=== PATIENT | female | born 1985 | race Caucasian/White ===

== ENCOUNTER → 2016-04-21 | Outpatient (CLI) | payer OTHER ==
[~2016-04-21] MED LIST: IBUP800T OR; PERC7.5T8 OR; PRENATAL VITAMIN PO
[2016-04-21 19:22] LABS: ANION GAP 8 MEQ/L (8-16); BLOOD UREA NITROGEN 7 MG/DL (7-18); CALCIUM LEVEL 9.2 MG/DL (8.5-10.1); CARBON DIOXIDE LEVEL 28 MEQ/L (21-32); CHLORIDE LEVEL 104 MEQ/L (98-107); CREATININE FOR GFR 0.84 MG/DL (0.55-1.02); FREE T4 0.95 NG/DL (0.76-1.46); GLOMERULAR FILTRATION RATE > 60.0 (>60); GLUCOSE, FASTING 91 MG/DL (70-105); HCG, SERUM QUANTITATIVE < 1.0 MIU/ML; POTASSIUM SERUM 4.3 MEQ/L (3.5-5.1); SODIUM LEVEL 140 MEQ/L (136-145)
== END ==
LOC: M SMT 14:27
PROVIDERS: ATTEND Nurse Practitioner Family
DX: E03.9 Hypothyroidism, unspecified (principal); N91.2 Amenorrhea, unspecified

== ENCOUNTER → 2016-11-11 | Outpatient (CLI) | payer OTHER ==
[2016-11-11 14:52] LABS: ALBUMIN 3.7 GM/DL (3.2-5.2); ALBUMIN/GLOBULIN RATIO 1.03 (1.00-1.93); ALKALINE PHOSPHATASE 77 U/L (45-117); ALT/SGPT 24 U/L (12-78); ANION GAP 10 MEQ/L (8-16); AST/SGOT 14 U/L (15-37); BILIRUBIN,TOTAL 1.3 MG/DL (0.2-1.0); BLOOD UREA NITROGEN 7 MG/DL (7-18); CALCIUM LEVEL 8.5 MG/DL (8.5-10.1); CARBON DIOXIDE LEVEL 24 MEQ/L (21-32); CHLORIDE LEVEL 108 MEQ/L (98-107); CREATININE FOR GFR 0.81 MG/DL (0.55-1.02); GLOMERULAR FILTRATION RATE > 60.0 (>60); GLUCOSE, FASTING 98 MG/DL (70-105); POTASSIUM SERUM 3.8 MEQ/L (3.5-5.1); SODIUM LEVEL 142 MEQ/L (136-145); TOTAL PROTEIN 7.3 GM/DL (6.4-8.2)
== END ==
LOC: M WUC 10:37
PROVIDERS: ATTEND Nurse Practitioner Family
DX: E03.9 Hypothyroidism, unspecified (principal)

== ENCOUNTER → 2017-05-11 | Outpatient (REF) | payer OTHER | LOC: M LAB REF 18:04 | DX: Z12.4 Encounter for screening for malignant neoplasm of cervix (principal) ==

== ENCOUNTER → 2017-05-12 | Outpatient (CLI) | payer OTHER ==
[2017-05-12 13:37] LABS: CONTROL LINE HCG INT CTR LINE PRESENT; HCG, SERUM QUALITATIVE NEGATIVE (NEGATIVE)
[2017-05-12 13:54] LABS: LUTEINIZING HORMONE 7.2 mIU/mL
[2017-05-12 13:56] LABS: FOLLICLE STIMULATING HORMONE 4.9 mIU/mL
[2017-05-12 14:58] LABS: CHOLESTEROL LEVEL 193 MG/DL (<200); CHOLESTEROL RISK RATIO 4.106 (<5); FREE THYROXINE INDEX 2.7 % (1.3-4.8); GLUCOSE, FASTING 92 MG/DL (70-100); HDL CHOLESTEROL 47 MG/DL (>40); LDH LACTATE DEHYDROGENASE 204 U/L (84-246); LDL CHOLESTEROL 121.6 MG/DL (<100); NON-HDL-C 146 MG/DL; T UPTAKE 31 % (30-39); THYROXINE (T4) 8.6 UG/DL (4.5-12.0); TRIGLYCERIDES LEVEL 122 MG/DL (<150)
== END ==
LOC: M SMT 10:29
DX: N91.1 Secondary amenorrhea (principal); N92.6 Irregular menstruation, unspecified; R63.5 Abnormal weight gain
CPT/HCPCS: 83001

== ENCOUNTER → 2017-07-05 | Outpatient (CLI) | payer OTHER ==
[2017-07-05 13:58] LABS: CONTROL LINE HCG INT CTR LINE PRESENT; HCG, SERUM QUALITATIVE NEGATIVE (NEGATIVE)
== END ==
LOC: M SMT 08:42
DX: N92.6 Irregular menstruation, unspecified (principal)
CPT/HCPCS: 84703

== ENCOUNTER → 2017-08-05 | Outpatient (CLI) | payer OTHER ==
[2017-08-05 14:52] LABS: FREE T4 0.84 NG/DL (0.76-1.46)
[2017-08-05 14:52] LABS: GLUCOSE, FASTING 89 MG/DL (70-100)
[2017-08-10 00:07] LABS: INSULIN FREE 15 uU/mL (.); INSULIN TOTAL2 15 uU/mL (.)
== END ==
LOC: M SMT 08:23
DX: N92.6 Irregular menstruation, unspecified (principal)
CPT/HCPCS: 82947

== ENCOUNTER → 2017-09-21 | Outpatient (CLI) | payer OTHER ==
[2017-09-21 13:31] LABS: BASO # 0.1 10^3/uL (0.0-0.2); BASO % 0.5 % (0.0-1.0); EOS # 0.4 10^3/uL (0.0-0.50); EOS % 4.1 % (0.0-3.0); HEMATOCRIT 42.7 % (36.0-47.0); HEMOGLOBIN 14.7 g/dl (12.0-15.5); IMMATURE GRANULOCYTE % 0.4 % (0-3.0); LYMPH # 2.6 10^3/uL (1.5-6.5); LYMPH % 25.6 % (24.0-44.0); MEAN CORPUSCULAR HEMOGLOBIN 31.9 pg (27.0-33.0); MEAN CORPUSCULAR HGB CONC 34.4 g/dl (32.0-36.5); MEAN CORPUSCULAR VOLUME 92.6 fl (80.0-96.0); MONO # 0.8 10^3/uL (0.0-0.8); MONO % 7.4 % (0.0-5.0); NEUTROPHILS # 6.3 10^3/uL (1.8-7.7); PLATELET COUNT, AUTOMATED 312 10^3/uL (150-450); RED BLOOD COUNT 4.61 10^6/uL (4.00-5.40); WHITE BLOOD COUNT 10.2 10^3/uL (4.0-10.0)
[2017-09-21 13:48] LABS: ALBUMIN 3.6 GM/DL (3.2-5.2); ALBUMIN/GLOBULIN RATIO 0.97 (1.00-1.93); ALKALINE PHOSPHATASE 83 U/L (45-117); ALT/SGPT 25 U/L (12-78); ANION GAP 8 MEQ/L (8-16); AST/SGOT 14 U/L (7-37); BILIRUBIN,TOTAL 1.3 MG/DL (0.2-1.0); BLOOD UREA NITROGEN 12 MG/DL (7-18); CALCIUM LEVEL 8.7 MG/DL (8.5-10.1); CARBON DIOXIDE LEVEL 29 MEQ/L (21-32); CHLORIDE LEVEL 108 MEQ/L (98-107); FREE T3 2.6 PG/ML (2.2-4.0); FREE T4 1.05 NG/DL (0.76-1.46); GLOMERULAR FILTRATION RATE > 60.0 (>60); GLUCOSE, FASTING 75 MG/DL (70-100); POTASSIUM SERUM 4.3 MEQ/L (3.5-5.1); SODIUM LEVEL 145 MEQ/L (136-145); TOTAL PROTEIN 7.3 GM/DL (6.4-8.2)
== END ==
LOC: M WUC 10:45
DX: K21.9 Gastro-esophageal reflux disease without esophagitis (principal); E03.9 Hypothyroidism, unspecified
CPT/HCPCS: 84443

== ENCOUNTER → 2017-12-22 | Outpatient (CLI) | payer OTHER ==
[2017-12-22 20:07] LABS: CONTROL LINE HCG INT CTR LINE PRESENT; HCG, SERUM QUALITATIVE NEGATIVE (NEGATIVE)
== END ==
LOC: M LAB 18:24
DX: E28.2 Polycystic ovarian syndrome (principal)
CPT/HCPCS: 84703

== ENCOUNTER → 2018-01-08 | Outpatient (CLI) | payer OTHER ==
[2018-01-10 10:15] LABS: FOLLICLE STIMULATING HORMONE 6.9 mIU/mL
== END ==
LOC: M LAB 09:01
DX: E28.2 Polycystic ovarian syndrome (principal)
CPT/HCPCS: 83001

== ENCOUNTER → 2018-05-23 | Outpatient (CLI) | payer OTHER ==
[2018-05-23 12:44] LABS: HEMOGLOBIN A1c 4.5 %
[2018-05-23 13:17] LABS: FREE T4 1.38 NG/DL (0.76-1.46); THYROID STIMULATING HORMONE 2.71 uIU/ML (0.358-3.740)
== END ==
LOC: M SMT 10:47
PROVIDERS: ATTEND Obstetrics & Gynecology
DX: E03.9 Hypothyroidism, unspecified (principal); N97.9 Female infertility, unspecified

== ENCOUNTER → 2018-06-08 | Outpatient (CLI) | payer OTHER ==
[2018-06-08 17:31] LABS: ALBUMIN 3.7 GM/DL (3.2-5.2); ALT/SGPT 31 U/L (12-78); BILIRUBIN,TOTAL 1.6 MG/DL (0.2-1.0); BLOOD UREA NITROGEN 6 MG/DL (7-18); CALCIUM LEVEL 8.8 MG/DL (8.5-10.1); CARBON DIOXIDE LEVEL 27 MEQ/L (21-32); CHLORIDE LEVEL 104 MEQ/L (98-107); CHOLESTEROL LEVEL 182 MG/DL (<200); CHOLESTEROL RISK RATIO 4.666 (<5); CREATININE FOR GFR 0.77 MG/DL (0.55-1.30); GLOMERULAR FILTRATION RATE > 60.0 (>60); GLUCOSE, FASTING 80 MG/DL (70-100); HDL CHOLESTEROL 39 MG/DL (>40); LDL CHOLESTEROL 108 MG/DL (<100); NON-HDL-C 143 MG/DL; POTASSIUM SERUM 4.1 MEQ/L (3.5-5.1); SODIUM LEVEL 140 MEQ/L (136-145); TOTAL PROTEIN 7.4 GM/DL (6.4-8.2); TRIGLYCERIDES LEVEL 175 MG/DL (<150)
[2018-06-08 17:34] LABS: BASO # 0.1 10^3/uL (0.0-0.2); BASO % 0.5 % (0.0-1.0); EOS # 0.5 10^3/uL (0.0-0.50); EOS % 5.7 % (0.0-3.0); HEMATOCRIT 44.5 % (36.0-47.0); HEMOGLOBIN 14.8 g/dl (12.0-15.5); LYMPH # 2.5 10^3/uL (1.5-4.5); LYMPH % 26.1 % (24.0-44.0); MEAN CORPUSCULAR HEMOGLOBIN 31.8 pg (27.0-33.0); MEAN CORPUSCULAR HGB CONC 33.3 g/dl (32.0-36.5); MEAN CORPUSCULAR VOLUME 95.7 fl (80.0-96.0); MONO # 0.7 10^3/uL (0.0-0.8); NEUTROPHILS # 5.6 10^3/uL (1.8-7.7); NEUTROPHILS % 60.3 % (36.0-66.0); PLATELET COUNT, AUTOMATED 342 10^3/uL (150-450); RED BLOOD COUNT 4.65 10^6/uL (4.00-5.40); WHITE BLOOD COUNT 9.4 10^3/uL (4.0-10.0)
== END ==
LOC: M WUC 11:54
PROVIDERS: ATTEND Nurse Practitioner Family
DX: K21.9 Gastro-esophageal reflux disease without esophagitis (principal); E03.9 Hypothyroidism, unspecified; Z13.220 Encounter for screening for lipoid disorders

== ENCOUNTER → 2018-06-14 | Outpatient (CLI) | payer OTHER ==
[~2018-06-14] MED LIST changes: +ISOVUE-370 76% 125ML VIAL (Q9967 PER ML) As Ordered ONE
--- NOTE | 2018-06-14 14:10 | REP ---
HYSTEROSALPINGOGRAM: The patient was referred for hysterosalpingogram. Referring clinician catheterized the cervix and injected contrast while I performed fluoroscopy obtained fluoroscopic images. Uterine cavity distends well with no filling defect. No contour abnormality is seen of the uterus. Fallopian tubes are normal in caliber. There is free passage of contrast through both fallopian tubes, with free bilateral intraperitoneal spillage of contrast. IMPRESSION: Bilateral fallopian tube patency. Fluoroscopy time 0.4 minutes. Electronically Signed by Donald Kenyon MD 06/15/2018 10:15 A
== END ==
LOC: M RADPRO 11:37
PROVIDERS: ATTEND Obstetrics & Gynecology
DX: N97.9 Female infertility, unspecified (principal); N92.6 Irregular menstruation, unspecified
CPT/HCPCS: 58340; 74740; Q9967

== ENCOUNTER → 2018-12-26 | Outpatient (CLI) | payer OTHER ==
[~2018-12-26] MED LIST changes: -ISOVUE-370 76% 125ML VIAL (Q9967 PER ML) As Ordered ONE
[2018-12-26 13:12] LABS: BASO # 0.1 10^3/uL (0.0-0.2); BASO % 0.5 % (0.0-1.0); EOS # 0.5 10^3/uL (0.0-0.5); EOS % 4.9 % (0.0-3.0); HEMATOCRIT 41.9 % (36.0-47.0); HEMOGLOBIN 14.6 g/dl (12.0-15.5); LYMPH # 2.1 10^3/uL (1.5-5.0); LYMPH % 19.4 % (24.0-44.0); MEAN CORPUSCULAR HGB CONC 34.8 g/dl (32.0-36.5); MEAN CORPUSCULAR VOLUME 97.7 fl (80.0-96.0); MONO # 0.6 10^3/uL (0.0-0.8); MONO % 5.8 % (0.0-5.0); NEUTROPHILS # 7.6 10^3/uL (1.5-8.5); NEUTROPHILS % 68.8 % (36.0-66.0); PLATELET COUNT, AUTOMATED 300 10^3/uL (150-450); RED BLOOD COUNT 4.29 10^6/uL (4.00-5.40)
[2018-12-26 14:07] LABS: HEPATITIS C VIRUS ABY INDEX 0.1 INDEX (<0.8); HIV 1&2 SCREEN CENTAUR NEGATIVE (NEGATIVE); RUBELLA IgG QUALITATIVE IMMUNE (IMMUNE)
[2018-12-26 15:25] LABS: CHLAMYDIA DNA AMPLIFICATION NEGATIVE (NEGATIVE); GC DNA AMPLIFICATION NEGATIVE (NEGATIVE)
== END ==
LOC: M SMT 09:41
PROVIDERS: ATTEND Advanced Practice Midwife
DX: Z34.81 Encounter for supervision of other normal pregnancy, first trimester (principal)

== ENCOUNTER → 2019-02-06 | Outpatient (CLI) | payer MEDICAID ==
[2019-02-06 10:49] LABS: FREE T4 0.87 NG/DL (0.76-1.46); THYROID STIMULATING HORMONE 6.1 uIU/ML (0.358-3.740)
== END ==
LOC: M SMT 08:29
PROVIDERS: ATTEND Obstetrics & Gynecology
DX: O34.219 Maternal care for unspecified type scar from previous cesarean delivery (principal); E03.9 Hypothyroidism, unspecified; O99.280 Endocrine, nutritional and metabolic diseases complicating pregnancy, unspecified trimester

== ENCOUNTER → 2019-05-01 | Outpatient (CLI) | payer MEDICAID, OTHER | LOC: M PLALAB 09:48 | PROVIDERS: ATTEND Advanced Practice Midwife | DX: O34.219 Maternal care for unspecified type scar from previous cesarean delivery (principal); Z3A.00 Weeks of gestation of pregnancy not specified ==

== ENCOUNTER → 2019-07-04 | Outpatient (REF) | payer OTHER ==
[~2019-07-04] MED LIST changes: +LEVO137T2 PO; +METF500T13 PO; +PRENTAB53 PO
== END ==
LOC: M SFHCWAGY 11:30
PROVIDERS: ATTEND Advanced Practice Midwife
DX: O34.219 Maternal care for unspecified type scar from previous cesarean delivery (principal); Z3A.00 Weeks of gestation of pregnancy not specified

== ENCOUNTER → 2019-07-10 | Outpatient (REF) | payer OTHER ==
[2019-07-10 12:50] LABS: HEMOGLOBIN A1c 4.2 %
[2019-07-10 12:55] LABS: FREE T4 0.94 NG/DL (0.76-1.46); THYROID STIMULATING HORMONE 4.56 uIU/ML (0.358-3.740)
== END ==
LOC: M PLALAB 09:51
PROVIDERS: ATTEND Advanced Practice Midwife
DX: Z36.89 Encounter for other specified antenatal screening (principal); Z3A.00 Weeks of gestation of pregnancy not specified

== ENCOUNTER 2019-07-24 05:29 | Inpatient (IN) | payer OTHER ==
[~2019-07-24] VITALS: Ht 167.6 cm; Wt 135.1 kg
[2019-07-24] VITALS (8 sets, daily range): BP systolic 102–152; BP diastolic 50–83
[2019-07-24] MEDS ORDERED: LR 1,000 ML IV ONE (05:45)
[2019-07-24] MEDS ORDERED: BICITRA 30ML SOLN UDC PO ONE (06:00)
[2019-07-24] MEDS ORDERED: ceFAZolin SOD 2 GM in IV 1 EA IV ONE (06:00)
[2019-07-24 06:36] LABS: HEMATOCRIT 38.9 % (36.0-47.0); HEMOGLOBIN 13.5 g/dl (12.0-15.5); MEAN CORPUSCULAR HEMOGLOBIN 33.3 pg (27.0-33.0); MEAN CORPUSCULAR HGB CONC 34.7 g/dl (32.0-36.5); PLATELET COUNT, AUTOMATED 261 10^3/uL (150-450); RED BLOOD COUNT 4.05 10^6/uL (4.00-5.40); WHITE BLOOD COUNT 10.7 10^3/uL (4.0-10.0)
[2019-07-24] MEDS ORDERED: LR 1,000 ML IV SCH ×2 (06:45→09:15)
[2019-07-24] MEDS ORDERED: MORPHINE PRES-FREE INJ 10 MG/10 ML VIAL (J2274) As Ordered ONE (07:27)
[2019-07-24] MEDS ORDERED: OXYTOCIN 30 UNITS IN 0.9% NaCl 500ML IV BAG (J2590) As Ordered ONE ×2 (07:31→08:37)
[2019-07-24] MEDS ORDERED: PHENYLephrine HCL 500 MCG/5 ML (100MCG/ML) SYRINGE (J2370) As Ordered ONE (07:31)
[2019-07-24] MEDS ORDERED: ePHEDrine SULFATE 25 MG/5 ML(5MG/ML) SYRINGE As Ordered ONE (07:31)
[2019-07-24] MEDS ORDERED: NALBUPHINE HCL 10 MG/ML AMP (J2300) IV PRN (07:41)
[2019-07-24] MEDS ORDERED: NALOXONE INJ 0.4MG/1ML VIAL (J2310 PER 1MG) IV PRN ×2 (07:41)
[2019-07-24] MEDS ORDERED: METOCLOPRAMIDE INJ 10MG/2ML VIAL (J2765 PER 1) IV PRN ×2 (07:41→09:15)
[2019-07-24] MEDS ORDERED: ONDANSETRON 4MG/2ML VIAL IV PRN ×3 (07:41→09:15)
[2019-07-24] MEDS ORDERED: diphenhydrAMINE 50MG/ML VIAL (J1200) IV PRN (07:41)
[2019-07-24] MEDS ORDERED: ONDANSETRON 4MG/2ML VIAL As Ordered ONE (08:05)
[2019-07-24] MEDS ORDERED: KETOROLAC 60 MG/2 ML VIAL As Ordered ONE (08:05)
[2019-07-24] MEDS ORDERED: OXYTOCIN DRIP 30 UNITS in IV 1 EA IV SCH (08:40)
[2019-07-24] MEDS ORDERED: OXYC1TAB23 PO (08:42)
[2019-07-24] MEDS ORDERED: IBUP80TA PO (08:43)
[2019-07-24] MEDS ORDERED: DOCU100C16 PO (08:43)
[2019-07-24] MEDS ORDERED: PERCOCET 5MG/325MG TAB PO PRN ×3 (08:45→09:15)
[2019-07-24] MEDS ORDERED: RHOGAM 300 MCG (1500 IU) INJ (J2790) IM SCH (08:45)
[2019-07-24] MEDS ORDERED: MEASLES,MUMPS,RUBELLA VACCINE INJ (MMR-II) (90707) SC SCH (08:45)
[2019-07-24] MEDS ORDERED: ACETAMINOPHEN 500 MG TAB PO PRN (08:45)
[2019-07-24] MEDS ORDERED: PROMETHAZINE 25 MG TAB PO PRN (08:45)
[2019-07-24] MEDS: PRENATAL VITAMINS CHEWABLE TABLET PO SCH (09:00)
[2019-07-24] MEDS: DOCUSATE SODIUM 100 MG CAP PO SCH ×2 (09:00→19:46)
[2019-07-24] MEDS ORDERED: fentaNYL 100 MCG/2 ML INJECTION (J3010) IV PRN (09:15)
[2019-07-24] MEDS: LR 1,000 ML IV SCH ×2 (10:08→18:06)
[2019-07-24] MEDS: LEVOTHYROXINE 137MCG TABLET (0.137MG) PO SCH (12:17)
[2019-07-24] MEDS: KETOROLAC 30 MG/ML 1ML VIAL IV SCH ×2 (14:10→19:46)
[2019-07-24] MEDS: metFORMIN (GLUCOPHAGE) 500 MG TAB PO SCH (18:06)
[2019-07-25] MEDS: KETOROLAC 30 MG/ML 1ML VIAL IV SCH (01:48)
[2019-07-25 02:29] VITALS: BP 128/60
[2019-07-25] MEDS: LEVOTHYROXINE 137MCG TABLET (0.137MG) PO SCH (05:49)
[2019-07-25 06:18] VITALS: BP 104/58
[2019-07-25 06:48] LABS: HEMATOCRIT 31.1 % (36.0-47.0); MEAN CORPUSCULAR HEMOGLOBIN 32.7 pg (27.0-33.0); MEAN CORPUSCULAR HGB CONC 33.4 g/dl (32.0-36.5); MEAN CORPUSCULAR VOLUME 97.8 fl (80.0-96.0); PLATELET COUNT, AUTOMATED 206 10^3/uL (150-450); RED BLOOD COUNT 3.18 10^6/uL (4.00-5.40); WHITE BLOOD COUNT 13.1 10^3/uL (4.0-10.0)
[2019-07-25 06:53] LABS: HEMOGLOBIN 10.4 g/dl (12.0-15.5)
[2019-07-25] MEDS: metFORMIN (GLUCOPHAGE) 500 MG TAB PO SCH ×2 (08:19→18:01)
[2019-07-25] MEDS: PRENATAL VITAMINS CHEWABLE TABLET PO SCH (08:19)
[2019-07-25] MEDS: DOCUSATE SODIUM 100 MG CAP PO SCH ×2 (08:19→20:51)
[2019-07-25] MEDS ORDERED: INFLUENZA QUADRIVALENT PF VACCINE 0.5ML SYRINGE (90686) IM ONE (09:00)
[2019-07-25] MEDS: IBUPROFEN 800 MG TAB PO SCH ×2 (09:41→18:00)
[2019-07-25 10:00] VITALS: BP 129/75
[2019-07-25 14:00] VITALS: BP 120/58
[2019-07-25 18:00] VITALS: BP 122/66
[2019-07-25 22:00] VITALS: BP 125/63
[2019-07-26 02:00] VITALS: BP 137/77
[2019-07-26] MEDS: IBUPROFEN 800 MG TAB PO SCH (02:11)
[2019-07-26] MEDS: LEVOTHYROXINE 137MCG TABLET (0.137MG) PO SCH (05:32)
[2019-07-26 06:00] VITALS: BP 119/66
[2019-07-26] MEDS: PRENATAL VITAMINS CHEWABLE TABLET PO SCH (08:23)
[2019-07-26] MEDS: DOCUSATE SODIUM 100 MG CAP PO SCH (08:23)
[2019-07-26] MEDS: metFORMIN (GLUCOPHAGE) 500 MG TAB PO SCH (08:24)
[2019-07-26] MEDS ORDERED: INFLUENZA QUADRIVALENT PF VACCINE 0.5ML SYRINGE (90686) IM ONE ×2 (09:00)
== END 2019-07-26 13:10 | disposition home or self-care (01) | DRG 540 ==
LOC: M LDI 05:29 → M OBS 10:25
PROVIDERS: ADMIT Obstetrics & Gynecology; ATTEND Obstetrics & Gynecology
PROC: 10D00Z1 Extraction of Products of Conception, Low, Open Approach (ICD-10-PCS; principal; 2019-07-24 07:30)
DX: O34.211 Maternal care for low transverse scar from previous cesarean delivery (principal); Z37.0 Single live birth; Z3A.39 39 weeks gestation of pregnancy

== ENCOUNTER → 2020-02-05 | Outpatient (REF) | payer OTHER ==
[~2020-02-05] MED LIST changes: +DOCU100C16 PO; +IBUP80TA PO; +OXYC1TAB23 PO
== END ==
LOC: M SFHCWAGY 17:15
PROVIDERS: ATTEND Obstetrics & Gynecology
DX: Z12.4 Encounter for screening for malignant neoplasm of cervix (principal); Z01.419 Encounter for gynecological examination (general) (routine) without abnormal findings

== ENCOUNTER → 2020-06-10 | Outpatient (CLI) | payer OTHER ==
[2020-06-10 18:05] LABS: HEMATOCRIT 39.6 % (36.0-47.0); HEMOGLOBIN 13.4 g/dl (12.0-15.5); MEAN CORPUSCULAR HEMOGLOBIN 33.9 pg (27.0-33.0); MEAN CORPUSCULAR HGB CONC 33.8 g/dl (32.0-36.5); MEAN CORPUSCULAR VOLUME 100.3 fl (80.0-96.0); PLATELET COUNT, AUTOMATED 246 10^3/uL (150-450); RED BLOOD COUNT 3.95 10^6/uL (4.00-5.40); WHITE BLOOD COUNT 13.1 10^3/uL (4.0-10.0)
[2020-06-10 18:44] LABS: GLUCOSE CHALLENGE TEST 1 HOUR 58 MG/DL (LESS THAN 140)
[2020-06-10 19:25] LABS: HEPATITIS C VIRUS ABY INDEX < 0.0 INDEX (<0.8); HIV 1&2 SCREEN CENTAUR NEGATIVE (NEGATIVE)
== END ==
LOC: M WHC 07:48
PROVIDERS: ATTEND Obstetrics & Gynecology
DX: Z34.82 Encounter for supervision of other normal pregnancy, second trimester (principal); Z3A.16 16 weeks gestation of pregnancy

== ENCOUNTER → 2020-07-08 | Outpatient (REF) | payer OTHER | LOC: M PLALAB 13:24 | PROVIDERS: ATTEND Obstetrics & Gynecology | DX: E03.9 Hypothyroidism, unspecified (principal) ==

== ENCOUNTER → 2020-07-08 | Outpatient (CLI) | payer OTHER ==
--- NOTE | 2020-07-08 10:53 | REP ---
INDICATION: ANATOMY COMPARISON: None. TECHNIQUE: Transabdominal obstetrical ultrasound with color Doppler evaluation. FINDINGS: Examination demonstrates a single live intrauterine in cephalic presentation. motion is identified by technologist. Fundal placenta is heterogeneous and grade 1 with a thick amniotic synechia/sheet along the right-side. There is no evidence for previa or abruption. Amniotic fluid volume is normal. Cervix measures 3.2 cm in length and appears closed.. Gestational age by LMP 20 weeks 0 days with ROBINSON 11/25/2020. Gestational age by current measurements 19 weeks 4 days with ROBINSON 11/28/2020. FHR equals 139 beats per minute. BPD: 4.4 cm at 19 weeks 3 days HC: 16.5 cm at 19 weeks 1 day AC: 14.5 cm at 19 weeks 5 days FL: 3.1 cm at 19 weeks 5 days HL: 3.1 cm at 20 weeks 0 days HC/AC: 1.14 Estimated weight 306 grams (28thpercentile). Anatomical assessment demonstrates normal structures including cranium, choroid plexus, cavum, cerebellum/posterior fossa, facial features, lungs, four-chamber heart/ventricular outflow tracts, diaphragm, stomach, cord insertion/three-vessel cord, kidneys/bladder, spine, and extremities. Echogenic focus in the left cardiac ventricle likely prominent chordae tendineae. IMPRESSION: 1. Single live intrauterine in cephalic presentation demonstrating appropriate estimated weight. 2. Heterogeneous grade 1 placenta with synechia/amniotic sheet may warrant follow-up. 3. Echogenic focus in the left cardiac ventricle likely prominent chordae tendineae. Remainder of the anatomical assessment appears normal. <Electronically signed by Diego Patino > 07/08/20 2012
== END ==
LOC: M WHC 09:33
PROVIDERS: ATTEND Obstetrics & Gynecology
DX: Z36.89 Encounter for other specified antenatal screening (principal); Z3A.20 20 weeks gestation of pregnancy

== ENCOUNTER → 2020-08-05 | Outpatient (REF) | payer OTHER ==
[2020-08-05 20:34] LABS: CHLAMYDIA DNA AMPLIFICATION NEGATIVE (NEGATIVE); GC DNA AMPLIFICATION NEGATIVE (NEGATIVE)
== END ==
LOC: M SFHCWAGY 16:53
PROVIDERS: ATTEND Advanced Practice Midwife
DX: O99.280 Endocrine, nutritional and metabolic diseases complicating pregnancy, unspecified trimester (principal); Z3A.00 Weeks of gestation of pregnancy not specified

== ENCOUNTER → 2020-08-20 | Outpatient (CLI) | payer OTHER ==
--- NOTE | 2020-08-20 12:41 | REP ---
INDICATION: F/U ANATOMY COMPARISON: 07/08/2020 TECHNIQUE: Transabdominal obstetrical ultrasound with color Doppler evaluation. FINDINGS: Examination demonstrates a single live intrauterine in variable presentation. motion is identified by technologist. Placenta is noted anterior and grade 1 without evidence for placenta previa or abruption. Amniotic fluid volume is normal. Cervix measures 4.3 cm in length and appears closed.. Gestational age by LMP and 1st U/S 26 weeks 1 day with ROBINSON 11/25/2020. Gestational age by current measurements 26 weeks 0 days with ROBINSON 11/26/2020. FHR equals 146 beats per minute. Estimated weight 933 grams (50thpercentile). Previous amniotic band/shelf no longer visualized. Echogenic focus in the left cardiac ventricle no longer visible. IMPRESSION: Single live intrauterine in variable presentation demonstrating appropriate growth. Previous anatomic irregularities are no longer visible. <Electronically signed by Diego Patino > 08/20/20 [id number]
== END ==
LOC: M WHC 10:53
PROVIDERS: ATTEND Obstetrics & Gynecology
DX: Z36.2 Encounter for other antenatal screening follow-up (principal); Z3A.26 26 weeks gestation of pregnancy

== ENCOUNTER → 2020-09-02 | Outpatient (REF) | payer OTHER ==
[2020-09-02 13:57] LABS: HEMATOCRIT 39.2 % (36.0-47.0); HEMOGLOBIN 13.2 g/dl (12.0-15.5); MEAN CORPUSCULAR HEMOGLOBIN 33.6 pg (27.0-33.0); MEAN CORPUSCULAR HGB CONC 33.7 g/dl (32.0-36.5); MEAN CORPUSCULAR VOLUME 99.7 fl (80.0-96.0); PLATELET COUNT, AUTOMATED 225 10^3/uL (150-450); RED BLOOD COUNT 3.93 10^6/uL (4.00-5.40); WHITE BLOOD COUNT 13.4 10^3/uL (4.0-10.0)
[2020-09-02 14:17] LABS: FREE T4 0.85 NG/DL (0.76-1.46); THYROID STIMULATING HORMONE 2.51 uIU/ML (0.358-3.740)
== END ==
LOC: M PLALAB 09:49
PROVIDERS: ATTEND Advanced Practice Midwife
DX: O99.280 Endocrine, nutritional and metabolic diseases complicating pregnancy, unspecified trimester (principal); E03.9 Hypothyroidism, unspecified

== ENCOUNTER → 2020-10-14 | Outpatient (CLI) | payer OTHER ==
--- NOTE | 2020-10-14 11:42 | REP ---
INDICATION: UTERINE SIZE DATE DISCREPANCY. COMPARISON: Comparison study August 20, 2020.. TECHNIQUE: Transabdominal obstetric sonography. FINDINGS: Scanning through the gravid uterus demonstrates a viable single intrauterine gestation in cephalic lie. motion is observed and heart rate is recorded at 138 beats per minute. A anterior placenta is seen, grade there are 2, without evidence of placenta previa. Closed cervical length is measured at 4.6 cm transabdominally. No extrauterine abnormality is observed. Amniotic fluid is subjectively normal ROBI normal 18.0 cm.. . Biometry chart: BPD 8.7 cm, 35 weeks 1 day Head circumference 31.4 cm, 35 weeks 1 day Abdominal circumference 32.3 cm, 36 weeks 2 days Femur length 6.9 cm, 35 weeks 1 day Humeral length 5.9 cm, 34 weeks 1 day HC AC ratio normal 0.97 Cephalic index normal 0.78 Estimated weight 2751 g, 6 lb 1 oz, 89th percentile for 34 weeks 0 days SD ratio in the umbilical cord artery by Doppler normal 2.17 IMPRESSION: Viable single intrauterine gestation at 35 weeks 1 days by today's composite sonographic criteria. ROBINSON by today's sonography November 17, 2020. No complication identified. Expected gestational age estimate based on known ROBINSON of November 25, 2020 is 34 weeks 0 days. Estimated weight in the 89th percentile. <Electronically signed by Anjum Engle > 10/14/20 [id number]
== END ==
LOC: M WHC 09:46
PROVIDERS: ATTEND Obstetrics & Gynecology
DX: O26.843 Uterine size-date discrepancy, third trimester (principal); Z3A.35 35 weeks gestation of pregnancy

== ENCOUNTER → 2020-10-28 | Outpatient (REF) | payer OTHER | LOC: M SFHCWAGY 13:20 | PROVIDERS: ATTEND Advanced Practice Midwife | DX: O34.219 Maternal care for unspecified type scar from previous cesarean delivery (principal) ==

== ENCOUNTER → 2020-11-15 | Outpatient (CLI) | payer OTHER ==
[~2020-11-15] MED LIST changes: +LEVO150T7
== END ==
LOC: M LABSMTC 10:12
PROVIDERS: ATTEND Anesthesiology
DX: Z01.812 Encounter for preprocedural laboratory examination (principal); Z20.822 Contact with and (suspected) exposure to COVID-19

== ENCOUNTER 2020-11-20 05:22 | Inpatient (IN) | payer OTHER ==
[~2020-11-20] VITALS: Ht 167.6 cm; Wt 145.4 kg
[2020-11-20] MEDS ORDERED: BICITRA 30ML SOLN UDC PO ONE (06:00)
[2020-11-20] MEDS ORDERED: ceFAZolin SOD 1 GM in D5W MINI-BAG PLUS 50 ML IV ONE (06:00)
[2020-11-20] MEDS ORDERED: LR 1,000 ML IV ONE (06:00)
[2020-11-20] MEDS ORDERED: ceFAZolin SOD 2 GM in IV 1 EA IV ONE (06:00)
[2020-11-20 06:11] VITALS: BP 121/66
[2020-11-20 06:44] LABS: HEMATOCRIT 38.4 % (36.0-47.0); HEMOGLOBIN 12.9 g/dl (12.0-15.5); MEAN CORPUSCULAR HEMOGLOBIN 33.5 pg (27.0-33.0); MEAN CORPUSCULAR HGB CONC 33.6 g/dl (32.0-36.5); MEAN CORPUSCULAR VOLUME 99.7 fl (80.0-96.0); PLATELET COUNT, AUTOMATED 232 10^3/uL (150-450); RED BLOOD COUNT 3.85 10^6/uL (4.00-5.40); WHITE BLOOD COUNT 11.5 10^3/uL (4.0-10.0)
[2020-11-20] MEDS ORDERED: LR 1,000 ML IV SCH (07:00)
[2020-11-20] MEDS ORDERED: OXYTOCIN INJ 10 UNITS/ML VIAL (J2590) As Ordered ONE (07:18)
[2020-11-20] MEDS ORDERED: NALOXONE INJ 0.4MG/1ML VIAL (J2310 PER 1MG) IV PRN ×2 (09:33)
[2020-11-20] MEDS ORDERED: METOCLOPRAMIDE INJ 10MG/2ML VIAL (J2765 PER 1) IV PRN (09:33)
[2020-11-20] MEDS ORDERED: NALBUPHINE HCL 10 MG/ML AMP (J2300) IV PRN ×2 (09:33→11:00)
[2020-11-20] MEDS ORDERED: diphenhydrAMINE 50MG/ML VIAL (J1200) IV PRN (09:33)
[2020-11-20] MEDS ORDERED: ONDANSETRON 4MG/2ML VIAL IV PRN ×3 (09:33→11:00)
[2020-11-20] MEDS ORDERED: PHENYLephrine 500MCG 5ML (100MCG/ML) SYRINGE As Ordered ONE (09:45)
[2020-11-20] MEDS ORDERED: ONDANSETRON 4MG/2ML VIAL As Ordered ONE (09:55)
[2020-11-20] MEDS ORDERED: dexameTHASONE 4 MG/ML 1ML VIAL (J1100 PER 1MG) As Ordered ONE (09:55)
[2020-11-20] MEDS ORDERED: KETOROLAC 60MG 2ML VIAL As Ordered ONE (10:06)
[2020-11-20] MEDS ORDERED: MORPHINE PRES-FREE INJ 10 MG/10 ML VIAL (J2274) As Ordered ONE (10:20)
[2020-11-20] MEDS ORDERED: ACETAMINOPHEN 500 MG TAB PO PRN (10:35)
[2020-11-20] MEDS ORDERED: OXYTOCIN DRIP 30 UNITS in IV 1 EA IV SCH (10:35)
[2020-11-20] MEDS ORDERED: METHYLERGONOVINE MALEATE 0.2 MG TAB PO PRN (10:35)
[2020-11-20] MEDS ORDERED: MEASLES,MUMPS,RUBELLA VACCINE INJ (MMR-II) (90707) SC SCH (10:35)
[2020-11-20] MEDS ORDERED: PERCOCET 5MG/325MG TAB PO PRN ×3 (10:35→11:00)
[2020-11-20] MEDS ORDERED: SIMETHICONE 80MG CHEW TAB PO PRN (10:35)
[2020-11-20] MEDS ORDERED: RHOGAM 300 MCG (1500 IU) INJ (J2790) IM SCH (10:35)
--- NOTE | 2020-11-20 10:41 | ROOPDOC ---
[facility] Report Of Operation Report of Operation DATE OF PROCEDURE: 11/20/2020 PREPROCEDURE DIAGNOSES: 39+ weeks gestation, history of low transverse section x2, obesity with a BMI of 51 POSTPROCEDURE DIAGNOSES: Same PROCEDURE: Repeat low transverse section SURGEON: Rajendra Starr DO FACOG PARK GUARD: Clay Waite CNM (Essential role in retraction, extraction, and closure of all tissue layers) ANESTHESIA: Spinal ESTIMATED BLOOD LOSS: 500 mL. IV FLUIDS: 900 mL LR URINE OUTPUT: 50 mL COMPLICATIONS: None. PREOPERATIVE ANTIBIOTICS: Ancef 3g IV x 1. COMPLICATIONS: none DATA: Apgars 9 and 9. Birthweight 3850 g, 8 lbs 3 oz. SPECIMENS: none PRIMARY INDICATION FOR : History of prior x 2 DESCRIPTION OF PROCEDURE: The patient was counseled on the risks, benefits, indications and alternatives of the procedure. Informed consent was obtained. She was taken to the operating room with IV running and placed on the operating table in the dorsal supine position with a leftward tilt. Regional anesthesia was found to be adequate. Sequential compression devices were placed on the lower extremities. A Luis catheter was placed under sterile conditions. She was prepared and draped in normal sterile fashion. A time out was performed per protocol. Regional anesthesia was again found to be adequate. A Pfannenstiel skin incision was made with the 10 blade. The 10 blade was used to dissect down to the level of the rectus sheath fascia. The rectus sheath pressure was incised midline and this was extended bilaterally with Grey scissors , and manual stretch. The rectus muscle bellies were dissected off the rectus sheath fascia superiorly and inferiorly using both sharp and blunt dissection. The midline was identified. The peritoneum was identified and entered digitally. The peritoneal opening was extended with manual stretch. The Mobius retractor was placed. The vesicouterine peritoneum was dissected with Metzenbaum scissors to create the bladder flap. A low transverse uterine incision was made with the 10 blade. This was extended with manual stretch. The amniotic sac was punctured, and clear fluid was noted. The baby delivered through the hysterotomy without difficulty. The cord was doubly clamped and cut, and the baby was handed off to awaiting care. data shown above. The placenta was removed manually. The intrauterine cavity was cleared of all clot and debris. The hysterotomy was closed with 0 Vicryl in running locked fashion. This was reinforced with a second imbricating layer using 0 Monocryl in running fashion. Excellent hemostasis of the hysterotomy was noted. The pelvis was irrigated and the fluid suctioned. The Mobius retractor was removed. The peritoneum was closed with 3-0 Vicryl running fashion. The rectus muscle bellies were reapproximated with interrupted stitches using 3-0 Vicryl. The rectus muscles bellies were hemostatic. The rectus sheath fascia was closed with 0 Vicryl running fashion. The subcutaneous layer was irrigated and the fluid suctioned. Small bleeding vessels were cauterized with Bovie. Excellent hemostasis was noted. The subcutaneous layer was reapproximated with 3-0 Vicryl running fashion. Skin was closed with 3-0 Monocryl in subcuticular fashion. An Optifoam bandage was placed over the closed incision. Sponge, needle and instrument counts were correct per protocol throughout the procedure. The patient tolerated the entire procedure very well. She was transferred to the PACU in stable condition. DO ALINA Tesfaye JONATHAN R. DO Nov 20, 2020 10:41
[2020-11-20] MEDS ORDERED: COLA100C5 PO (10:44)
[2020-11-20] MEDS ORDERED: IBUP80TA PO (10:44)
[2020-11-20] MEDS ORDERED: PERCOCET PO (10:44)
[2020-11-20] MEDS ORDERED: MEPERIDINE INJ 25 MG/ML VIAL (J2175) IV PRN (11:00)
[2020-11-20] MEDS ORDERED: HYDROMORPHONE HCL 0.5 MG/ 0.5 ML SYRINGE (J1170 PER 1) IV PRN (11:00)
[2020-11-20] MEDS ORDERED: fentaNYL 100 MCG/2 ML INJECTION (J3010) IV PRN (11:00)
[2020-11-20] MEDS ORDERED: OXYTOCIN 30 UNITS IN 0.9% NaCl 500ML IV BAG (J2590) As Ordered ONE (11:14)
[2020-11-20 11:19] LABS: HEMATOCRIT 38.9 % (36.0-47.0); MEAN CORPUSCULAR HEMOGLOBIN 33.6 pg (27.0-33.0); MEAN CORPUSCULAR HGB CONC 33.4 g/dl (32.0-36.5); MEAN CORPUSCULAR VOLUME 100.5 fl (80.0-96.0); PLATELET COUNT, AUTOMATED 245 10^3/uL (150-450); RED BLOOD COUNT 3.87 10^6/uL (4.00-5.40); WHITE BLOOD COUNT 13.6 10^3/uL (4.0-10.0)
[2020-11-20 11:42] LABS: CREATININE FOR GFR 0.71 MG/DL (0.55-1.30); GLOMERULAR FILTRATION RATE > 60.0 (>60)
[2020-11-20 12:15] VITALS: BP 125/68
[2020-11-20 12:45] VITALS: BP 116/64
[2020-11-20 13:45] VITALS: BP 118/67
[2020-11-20 14:45] VITALS: BP 111/60
[2020-11-20] MEDS: LR 1,000 ML IV SCH ×2 (16:30→18:35)
[2020-11-20] MEDS: KETOROLAC 30 MG/ML 1ML VIAL IV SCH ×2 (16:51→21:22)
[2020-11-20 18:00] VITALS: BP 116/65
[2020-11-20] MEDS ORDERED: ENOXAPARIN 40MG/0.4ML SYRINGE (J1650 PER 10MG) SC SCH (18:00)
[2020-11-20] MEDS: DOCUSATE SODIUM 100MG CAPSULE PO SCH (21:21)
[2020-11-21 03:00] VITALS: BP 105/66
[2020-11-21] MEDS: KETOROLAC 30 MG/ML 1ML VIAL IV SCH (05:36)
[2020-11-21 06:00] VITALS: BP 117/55
[2020-11-21] MEDS ORDERED: LEVOTHYROXINE 150MCG TABLET (0.15MG) PO SCH (06:00)
[2020-11-21] MEDS ORDERED: metFORMIN (GLUCOPHAGE) 500MG TAB PO SCH (08:00)
[2020-11-21 08:19] LABS: HEMATOCRIT 36.4 % (36.0-47.0); HEMOGLOBIN 12.1 g/dl (12.0-15.5); MEAN CORPUSCULAR HEMOGLOBIN 33.5 pg (27.0-33.0); MEAN CORPUSCULAR HGB CONC 33.2 g/dl (32.0-36.5); MEAN CORPUSCULAR VOLUME 100.8 fl (80.0-96.0); PLATELET COUNT, AUTOMATED 235 10^3/uL (150-450); RED BLOOD COUNT 3.61 10^6/uL (4.00-5.40); WHITE BLOOD COUNT 15.1 10^3/uL (4.0-10.0)
[2020-11-21] MEDS ORDERED: PRENATAL VITAMINS CHEWABLE TABLET PO SCH (09:00)
[2020-11-21 10:00] VITALS: BP 113/67
[2020-11-21] MEDS: DOCUSATE SODIUM 100MG CAPSULE PO SCH (10:45)
[2020-11-21] MEDS ORDERED: IBUPROFEN 800 MG TAB PO SCH (12:30)
[2020-11-21 14:00] VITALS: BP 111/61
--- NOTE | 2020-11-21 15:17 | DS.PDOC ---
Discharge Summary General Date of Admission Nov 20, 2020 at 05:22 Date of Discharge 2020 Discharge Summary PROCEDURES PERFORMED DURING STAY: section. ADMITTING DIAGNOSES: 1. 39 weeks gestation, prior section x2. DISCHARGE DIAGNOSES: 1. Same. COMPLICATIONS/CHIEF COMPLAINT: Previous Section HISTORY OF PRESENT ILLNESS: 35-year-old female 39 weeks gestation presents for repeat section. HOSPITAL COURSE: 35-year-old female 39 weeks gestation presents for repeat section. She has a history of prior to prior sections. On 11/20/2020 she underwent repeat low transverse section by Dr Rajendra Starr. The procedure without complication. Her postop course unremarkable. She had adequate return of bladder and bowel function. She was deemed stable for discharge on postop day #1.. DISCHARGE MEDICATIONS: Please see below. ALLERGIES: Please see below. PHYSICAL EXAMINATION ON DISCHARGE: VITAL SIGNS: Please see below. GENERAL: NAD HEENT: NCAT CARDIOVASCULAR EXAMINATION: RRR RESPIRATORY EXAMINATION: CTA ABDOMINAL EXAMINATION: Nontender, dressing clean dry intact, fundus firm EXTREMITIES: Nontender LABORATORY DATA: Please see below. PROGNOSIS: Good ACTIVITY: As tolerated. DIET: Regular DISCHARGE PLAN: Home DISCHARGE INSTRUCTIONS: 1. Discharge home 2. Instructions reviewed 3. Pain medication sent. DISCHARGE CONDITION: Stable. TIME SPENT ON DISCHARGE: 10 minutes. Vital Signs/I&Os Vital Signs Date Time Temp Pulse Resp B/P (MAP) Pulse Ox O2 Delivery O2 Flow Rate FiO2 11/21/20 14:00 97.8 81 20 111/61 (78) 97 Room Air I&O- Last 24 Hours up to 6 AM 11/21/20 06:00 Intake Total 1850 ml Output Total 3250 ml Balance -1400 ml Laboratory Data Labs 24H Laboratory Tests 2 11/21/20 07:53: Nucleated Red Blood Cells % (auto) 0.0 CBC/BMP Laboratory Tests 11/21/20 07:53 Discharge Medications Scheduled Docusate Sodium (Colace) 100 Mg Capsule, 100 MG PO BID Ibuprofen (Ibuprofen) 800 Mg Tablet, 800 MG PO Q8H Levothyroxine Sodium (Levothyroxine Sodium) 150 Mcg Tablet, DAILY, (Reported) Metformin HCl (Metformin HCl) 500 Mg Tablet, 500 MG PO BID, (Reported) Vit,Calc76/Iron/Folic (Prenatabs Rx Tablet) 1 Each Tablet, 1 TAB PO DAILY, (Reported) Scheduled PRN Oxycodone/Acetaminophen (Oxycodone-Acetaminophen 5-325) 1 Each Tablet, 1 TAB PO Q4H PRN for MODERATE PAIN (PS 5-7) Allergies Coded Allergies: No Known Allergies (Unverified , 11/06/20) REAL RUSSELL MD Nov 21, 2020 15:17
== END 2020-11-21 17:47 | disposition home or self-care (01) | DRG 540 ==
LOC: M LDI 05:22 → M OBS 12:12
PROVIDERS: ADMIT Obstetrics & Gynecology; ATTEND Obstetrics & Gynecology
PROC: 10D00Z1 Extraction of Products of Conception, Low, Open Approach (ICD-10-PCS; principal; 2020-11-20 07:30)
DX: O34.211 Maternal care for low transverse scar from previous cesarean delivery (principal); Z3A.39 39 weeks gestation of pregnancy; Z37.0 Single live birth; O99.214 Obesity complicating childbirth; E66.9 Obesity, unspecified; Z68.43 Body mass index [BMI] 50.0-59.9, adult

== ENCOUNTER → 2022-05-25 | Outpatient (REF) | payer OTHER ==
[~2022-05-25] MED LIST changes: +COLA100C5 PO; +PERCOCET PO
== END ==
LOC: M PLALAB 15:20
PROVIDERS: ATTEND Obstetrics & Gynecology
DX: Z12.4 Encounter for screening for malignant neoplasm of cervix (principal)

== ENCOUNTER → 2022-09-01 | Outpatient (CLI) | payer OTHER ==
[2022-09-01 13:54] LABS: FREE T4 0.88 NG/DL (0.89-1.76); THYROID STIMULATING HORMONE 5.724 uIU/ML (0.55-4.78)
[2022-09-01 13:58] LABS: HEMOGLOBIN A1c 4.4 % (4.0-6.0)
[2022-09-01 14:01] LABS: ALBUMIN 3.7 G/DL (3.2-5.2); ALKALINE PHOSPHATASE 76 U/L (46-116); ALT/SGPT 32 U/L (7.0-40); AST/SGOT 18 U/L (<34); BILIRUBIN,TOTAL 1.4 MG/DL (0.3-1.2); BLOOD UREA NITROGEN 7 MG/DL (9-23); CALCIUM LEVEL 8.6 MG/DL (8.5-10.1); CARBON DIOXIDE LEVEL 26 MMOL/L (20-31); CHLORIDE LEVEL 107 MMOL/L (98-107); CHOLESTEROL LEVEL 155 MG/DL (<200); CHOLESTEROL RISK RATIO 3.24 (<5); CREATININE FOR GFR 0.74 MG/DL (0.55-1.30); GLOMERULAR FILTRATION RATE > 60.0 (>60); GLUCOSE, FASTING 79 MG/DL (60-100); HDL CHOLESTEROL 47.7 MG/DL (>40); LDL CHOLESTEROL 81.3 MG/DL (<100); NON-HDL-C 107.3 MG/DL; POTASSIUM SERUM 3.9 MMOL/L (3.5-5.1); SODIUM LEVEL 140 MMOL/L (136-145); TOTAL PROTEIN 6.6 G/DL (5.7-8.2); TRIGLYCERIDES LEVEL 130 MG/DL (<150)
== END ==
LOC: M PLALAB 11:49
PROVIDERS: ATTEND Family Medicine
DX: E03.9 Hypothyroidism, unspecified (principal); E66.01 Morbid (severe) obesity due to excess calories

== ENCOUNTER → 2023-11-15 | Outpatient (CLI) | payer MEDICAID, OTHER, SELFPAY ==
[2023-11-15 16:39] LABS: THYROID STIMULATING HORMONE 11.865 uIU/ML (0.55-4.78); TOTAL 25(OH) VITAMIN D 28.4 NG/ML (20.0-100.0)
== END ==
LOC: M PLALAB 13:29
PROVIDERS: ATTEND Family Medicine
DX: E55.9 Vitamin D deficiency, unspecified (principal); E03.9 Hypothyroidism, unspecified

== ENCOUNTER → 2024-02-03 | Outpatient (CLI) | payer OTHER ==
[2024-02-03 19:18] LABS: ALBUMIN 3.6 G/DL (3.2-5.2); ALKALINE PHOSPHATASE 82 U/L (35-104); ALT/SGPT 19 U/L (7.0-40); AST/SGOT 12 U/L (<34); BILIRUBIN,TOTAL 1.1 MG/DL (0.3-1.2); BLOOD UREA NITROGEN 8 MG/DL (9-23); CALCIUM LEVEL 9.8 MG/DL (8.5-10.1); CARBON DIOXIDE LEVEL 28 MMOL/L (20-31); CHLORIDE LEVEL 106 MMOL/L (98-107); CHOLESTEROL LEVEL 194 MG/DL (<200); CREATININE FOR GFR 0.81 MG/DL (0.55-1.30); GLOMERULAR FILTRATION RATE > 60.0 (>60); GLUCOSE, FASTING 86 MG/DL (60-100); HDL CHOLESTEROL 48.5 MG/DL (>40); LDL CHOLESTEROL 111.3 MG/DL (<100); NON-HDL-C 145.5 MG/DL; POTASSIUM SERUM 3.7 MMOL/L (3.5-5.1); SODIUM LEVEL 141 MMOL/L (136-145); TOTAL PROTEIN 7.3 G/DL (5.7-8.2); TRIGLYCERIDES LEVEL 171 MG/DL (<150)
[2024-02-03 19:19] LABS: FREE T4 1.32 NG/DL (0.89-1.76); THYROID STIMULATING HORMONE 5.367 uIU/ML (0.55-4.78)
== END ==
LOC: M PLALAB 16:16
PROVIDERS: ATTEND Family Medicine
DX: E66.01 Morbid (severe) obesity due to excess calories (principal); E03.9 Hypothyroidism, unspecified